=== PATIENT | male | born 1970 | race Hispanic/Latino ===

== ENCOUNTER 2018-08-03 01:14 | Emergency (ER) | payer SELFPAY ==
--- NOTE | 2018-08-03 07:51 | ULT ---
PRELIMINARY REPORT/[facility]/EMERGENCY AFTER HOURS PROCEDURE: EXAM: US Abdomen Limited, Right Upper Quadrant EXAM DATE/TIME: 08/03/2018 1:42 AM CLINICAL HISTORY: 47 years old, male; Pain and signs and symptoms; Nausea and vomiting and other: Diarrhea; Abdominal pain; Localized; Right upper quadrant (ruq); Patient HX: Ruq pain, n/v/d x 5 days TECHNIQUE: Imaging protocol: Real-time ultrasound of the abdomen with image documentation. Examination was focused on the right upper quadrant. COMPARISON: No relevant prior studies available. FINDINGS: Liver: Slight increased echogenicity of the liver may indicate fatty infiltration. Otherwise unremarkable liver, no focal abnormality. Gallbladder: Multiple shadowing gallstones within the gallbladder. No gallbladder wall thickening or pericholecystic fluid. The gallbladder does not appear abnormally distended at this time. Common bile duct: The common bile duct is not well visualized at this time. No obvious biliary tree dilation. Pancreas: The pancreas is obscured by bowel gas at this time. Right kidney: Images of the right kidney show no hydronephrosis. IMPRESSION: 1. Cholelithiasis, see additional details above. 2. The common bile duct is not well visualized at this time. No obvious biliary tree dilation. 3. Other findings discussed above. Thank you for allowing us to participate in the care of your patient. Dictated and Authenticated by: Cristi Salinas MD 08/03/2018 3:04 AM Central Time ([place] & [place]) FINAL REPORT GALLBLADDER ULTRASOUND: Fatty liver. Cholelithiasis without gallbladder wall thickening. The common duct is obscured by overl amena bowel gas. No free fluid is seen in the Nathan's pouch. I agree with the report given by Dr. Salinas of [facility]. Transcribed Date/Time: 08/03/2018 9:02 AM
== END 2018-08-03 02:18 | disposition home or self-care (01) ==
LOC: ERS 01:14
DX: K80.20 Calculus of gallbladder without cholecystitis without obstruction (principal); I10 Essential (primary) hypertension; Z79.899 Other long term (current) drug therapy
CPT/HCPCS: 76705

== ENCOUNTER 2018-09-26 08:24 | Emergency (ER) | payer SELFPAY ==
[2018-09-26] MEDS ORDERED: Acetaminophen 500 MG TAB ONE (08:36)
[2018-09-26] MEDS ORDERED: Adacel (T-DAP) 0.5 ML SYRINGE ONE (08:36)
--- NOTE | 2018-09-26 09:06 | RAD ---
Exam:2 views right forearm HISTORY: Pain COMPARISON: None FINDINGS: No fracture. No cortical irregularity. No periosteal reaction. IMPRESSION: No fracture.
--- NOTE | 2018-09-26 09:08 | RAD ---
Exam:Right elbow 4 views HISTORY: Pain. COMPARISON: None FINDINGS: No fracture. No malalignment. Joint spaces preserved. IMPRESSION: Unremarkable right elbow radiograph series
== END 2018-09-26 10:13 | disposition home or self-care (01) ==
LOC: ERS 08:24
DX: M25.521 Pain in right elbow (principal); I10 Essential (primary) hypertension; Z79.899 Other long term (current) drug therapy; V43.52XA Car driver injured in collision with other type car in traffic accident, initial encounter
CPT/HCPCS: 90471; 90715